=== PATIENT | male | born 2000 | race Caucasian/White ===

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

== ENCOUNTER 2020-10-04 11:16 | Emergency (ER) | payer OTHER ==
[~2020-10-04] VITALS: Ht 175.3 cm; Wt 68.0 kg
[~2020-10-04 11:16] MED LIST changes: +ASPI325EC PO; +Benztropine Me0.5 MG; +PALIPERIDONE ER3 MG PO; +QUETIAPINE FUM200 MG PO
[2020-10-04 11:56] LABS: Source, Urine Clean Catch
[2020-10-04 12:18] LABS: Appearance, Urine Clear (Clear); Bilirubin, Urine Neg (Neg); Blood, Urine Neg (Neg); Glucose Qualitative, Urine Neg (Neg); Ketones, Urine Neg (Neg); Leukocyte Esterase, Urine Neg (Neg); Nitrite, Urine Neg (Neg); Protein, Urine Neg (Neg); Urobilinogen, Urine NORM (Normal)
[2020-10-04 13:06] LABS: BASOPHILS ABSOLUTE AUTO 0.05 K/mm3 (0.00-0.23); BASOPHILS PERCENT AUTO 1 % (0-2); EOSINOPHILS ABSOLUTE AUTO 0.01 K/mm3 (0.00-0.68); EOSINOPHILS PERCENT AUTO 0 % (0-6); Hematocrit 43.6 % (37.0-53.0); Hemoglobin 15.3 g/dL (13.5-17.5); IMMATURE GRAN ABSOLUTE AUTO 0.02 K/mm3 (0.00-0.10); IMMATURE GRAN PERCENT AUTO 0 % (0-1); LYMPHOCYTES ABSOLUTE AUTO 0.86 K/mm3 (0.84-5.20); LYMPHOCYTES PERCENT AUTO 12 % (21-46); MONOCYTES ABSOLUTE AUTO 0.58 K/mm3 (0.16-1.47); MONOCYTES PERCENT AUTO 8 % (4-13); Mean Corpuscular HGB Conc 35.1 g/dL (31.5-36.5); Mean Corpuscular Volume 88 fL (80-100); NEUTROPHILS ABSOLUTE AUTO 5.97 K/mm3 (1.96-9.15); NEUTROPHILS PERCENT AUTO 80 % (41-73); Platelet Count 231 K/mm3 (150-400); RDW Coefficient Variation 12.5 % (11.7-14.2); RDW Standard Deviation 40.8 fL (35.1-46.3); Red Blood Cell Count 4.93 M/mm3 (4.30-5.90); White Blood Cell Count 7.49 K/mm3 (4.00-11.30)
[2020-10-04 13:06] LABS: Color, Urine Pale Yellow (P-Yellow)
[2020-10-04 13:15] LABS: U Amphetamine Screen Not Detected; U Barbituate Screen Not Detected; U Benzodiazapine Screen Not Detected; U Buprenorphine Screen Not Detected; U Cannabinoids Screen DETECTED; U Cocaine Screen Not Detected; U Methadone Screen Not Detected; U Methamphetamine Screen Not Detected; U Opiates Screen Not Detected; U Oxycodone Screen Not Detected; U Phencyclidine Screen Not Detected; U Propoxyphene Screen Not Detected
[2020-10-04 13:30] LABS: Alanine Aminotransfer (ALT/SGP 34 U/L (12-78); Albumin, Blood 4.2 g/dL (3.4-5.0); Alk Phos 110 U/L (58-237); Anion Gap 6 mmol/L (6-16); Aspartate Aminotrans (AST/SGOT 23 U/L (12-37); Bilirubin, Total 0.9 mg/dL (0.1-1.0); Blood Urea Nitrogen 4 mg/dL (8-21); Bun/Creatinine Ratio 4.7 (12.0-20.0); CO2, Blood 25 mmol/L (21-32); Calcium, Blood 9.4 mg/dL (8.5-10.1); Chloride, Blood 108 mmol/L (98-108); Creatinine, Blood 0.86 mg/dL (0.60-1.20); Ethanol (Alcohol), Blood, Med <3 mg/dL; Globulin, Blood 4.1 g/dL (2.2-4.0); Glomerular Filtration Rate >60 (60-); Glucose, Blood 136 mg/dL (70-99); Potassium, Blood 3.3 mmol/L (3.5-5.5); Salicylate 2.8 mg/dL (2.8-20.0); Sodium, Blood 139 mmol/L (136-145); Total Protein, Blood 8.3 g/dL (6.4-8.2)
[2020-10-04 13:38] LABS: Acetaminophen, Random <2.0 ug/mL (10.0-30.0)
== END 2020-10-04 14:00 | disposition home or self-care (01) ==
LOC: ER 11:16
PROVIDERS: Physician Assistant
DX: Z65.9 Problem related to unspecified psychosocial circumstances (principal); J45.909 Unspecified asthma, uncomplicated; F17.210 Nicotine dependence, cigarettes, uncomplicated; F12.90 Cannabis use, unspecified, uncomplicated; Z88.0 Allergy status to penicillin
CPT/HCPCS: 36415; 80053; 81003; 85025; 99284; G0480

== ENCOUNTER 2020-12-10 18:13 | Observation (INO) | payer OTHER ==
[~2020-12-10] VITALS: Ht 172.7 cm; Wt 63.5 kg
[2020-12-10] MEDS ORDERED: [UNRECOGNIZED DRUG - OTHER] IM (18:43)
[2020-12-10] MEDS ORDERED: LITH300C PO (18:43)
[2020-12-10 19:34] LABS: Source, Urine Clean Catch
[2020-12-10 19:40] LABS: Appearance, Urine Clear (Clear); Bilirubin, Urine Neg (Neg); Blood, Urine Neg (Neg); Color, Urine Yellow (P-Yellow); Glucose Qualitative, Urine Neg (Neg); Ketones, Urine 3+ (Neg); Leukocyte Esterase, Urine Neg (Neg); Nitrite, Urine Neg (Neg); Protein, Urine Neg (Neg); Urobilinogen, Urine NORM (Normal)
[2020-12-10 19:46] LABS: BASOPHILS ABSOLUTE AUTO 0.04 K/mm3 (0.00-0.23); BASOPHILS PERCENT AUTO 0 % (0-2); EOSINOPHILS ABSOLUTE AUTO 0.03 K/mm3 (0.00-0.68); EOSINOPHILS PERCENT AUTO 0 % (0-6); Hemoglobin 15.5 g/dL (13.5-17.5); IMMATURE GRAN ABSOLUTE AUTO 0.04 K/mm3 (0.00-0.10); IMMATURE GRAN PERCENT AUTO 0 % (0-1); LYMPHOCYTES ABSOLUTE AUTO 1.49 K/mm3 (0.84-5.20); LYMPHOCYTES PERCENT AUTO 13 % (21-46); MONOCYTES ABSOLUTE AUTO 0.46 K/mm3 (0.16-1.47); MONOCYTES PERCENT AUTO 4 % (4-13); Mean Corpuscular HGB 31.6 pg (26.0-34.0); Mean Corpuscular HGB Conc 34.4 g/dL (31.5-36.5); Mean Corpuscular Volume 92 fL (80-100); Mean Platelet Volume 11.6 fL (9.1-12.4); NEUTROPHILS ABSOLUTE AUTO 9.16 K/mm3 (1.96-9.15); NEUTROPHILS PERCENT AUTO 82 % (41-73); Platelet Count 264 K/mm3 (150-400); RDW Coefficient Variation 12.5 % (11.7-14.2); RDW Standard Deviation 42.7 fL (35.1-46.3); Red Blood Cell Count 4.91 M/mm3 (4.30-5.90); White Blood Cell Count 11.22 K/mm3 (4.00-11.30)
[2020-12-10 20:00] LABS: U Cannabinoids Screen DETECTED
[2020-12-10 20:01] LABS: U Amphetamine Screen Not Detected; U Barbituate Screen Not Detected; U Benzodiazapine Screen Not Detected; U Buprenorphine Screen Not Detected; U Cocaine Screen Not Detected; U Methadone Screen Not Detected; U Methamphetamine Screen Not Detected; U Opiates Screen Not Detected; U Oxycodone Screen Not Detected; U Phencyclidine Screen Not Detected; U Propoxyphene Screen Not Detected
[2020-12-10 20:10] LABS: Alanine Aminotransfer (ALT/SGP 30 U/L (12-78); Albumin, Blood 3.9 g/dL (3.4-5.0); Albumin/Globulin Ratio 0.9 (0.8-1.8); Alk Phos 115 U/L (50-136); Anion Gap 4 mmol/L (6-16); Aspartate Aminotrans (AST/SGOT 24 U/L (12-37); Bilirubin, Total 0.3 mg/dL (0.1-1.0); Blood Urea Nitrogen 10 mg/dL (8-24); Bun/Creatinine Ratio 10.7 (12.0-20.0); CO2, Blood 26 mmol/L (21-32); Calcium, Blood 9.4 mg/dL (8.5-10.1); Chloride, Blood 109 mmol/L (98-108); Creatinine, Blood 0.93 mg/dL (0.60-1.20); Ethanol (Alcohol), Blood, Med <3 mg/dL; Globulin, Blood 4.5 g/dL (2.2-4.0); Glomerular Filtration Rate >60 (60-); Glucose, Blood 96 mg/dL (70-99); Potassium, Blood 3.8 mmol/L (3.5-5.5); Sodium, Blood 139 mmol/L (136-145); Total Protein, Blood 8.4 g/dL (6.4-8.2)
[2020-12-10 20:11] LABS: Salicylate 4.1 mg/dL (2.8-20.0)
[2020-12-10 20:15] LABS: Acetaminophen, Random <2.0 ug/mL (10.0-30.0)
[2020-12-11 02:00] LABS: Influenza A, PCR NEGATIVE (NEGATIVE); Influenza B, PCR NEGATIVE (NEGATIVE); Resp Syncytial Virus, PCR NEGATIVE (NEGATIVE); SARS-Cov-2 (COVID-19) PCR, MMC NEGATIVE (NEGATIVE)
[2020-12-12] MEDS ORDERED: LITH300ER PO (10:45)
== END 2020-12-12 11:14 | disposition home or self-care (01) ==
LOC: ER 18:13 → EOR 18:14
PROVIDERS: Physician Assistant; ADMIT Emergency Medicine
DX: F25.9 Schizoaffective disorder, unspecified (principal); F17.210 Nicotine dependence, cigarettes, uncomplicated; Z91.14 Patient's other noncompliance with medication regimen; Z88.0 Allergy status to penicillin; Z79.899 Other long term (current) drug therapy; Z20.822 Contact with and (suspected) exposure to COVID-19
CPT/HCPCS: 0241U; 80053; 81003; 85025; 99285; A9270; G0378; G0480

== ENCOUNTER 2023-06-12 12:04 | Observation (INO) | payer OTHER ==
[~2023-06-12] VITALS: Ht 180.3 cm; Wt 65.8 kg
[~2023-06-12 12:04] MED LIST changes: +LITH300ER PO; +[UNRECOGNIZED DRUG - OTHER] IM
[2023-06-12] MEDS ORDERED: OLANZapine 10 MG Vial IM ONE (12:15)
[2023-06-12 12:41] LABS: BASOPHILS PERCENT AUTO 1 % (0-2); EOSINOPHILS ABSOLUTE AUTO 0.14 K/mm3 (0.00-0.68); EOSINOPHILS PERCENT AUTO 1 % (0-6); Hematocrit 48.2 % (37.0-53.0); Hemoglobin 17.3 g/dL (13.5-17.5); IMMATURE GRAN ABSOLUTE AUTO 0.05 K/mm3 (0.00-0.10); IMMATURE GRAN PERCENT AUTO 0 % (0-1); LYMPHOCYTES ABSOLUTE AUTO 2.03 K/mm3 (0.84-5.20); LYMPHOCYTES PERCENT AUTO 13 % (21-46); MONOCYTES ABSOLUTE AUTO 1.71 K/mm3 (0.16-1.47); MONOCYTES PERCENT AUTO 11 % (4-13); Mean Corpuscular HGB 31.6 pg (26.0-34.0); Mean Corpuscular HGB Conc 35.9 g/dL (31.5-36.5); Mean Corpuscular Volume 88 fL (80-100); Mean Platelet Volume 11.7 fL (9.1-12.4); NEUTROPHILS ABSOLUTE AUTO 11.46 K/mm3 (1.96-9.15); NEUTROPHILS PERCENT AUTO 74 % (41-73); Platelet Count 291 K/mm3 (150-400); RDW Coefficient Variation 12.8 % (11.7-14.2); RDW Standard Deviation 41.8 fL (35.1-46.3); Red Blood Cell Count 5.47 M/mm3 (4.30-5.90); White Blood Cell Count 15.49 K/mm3 (4.00-11.30)
[2023-06-12 13:03] LABS: Ethanol (Alcohol), Blood, Med <3 mg/dL; Salicylate 2.9 mg/dL (2.8-20.0)
[2023-06-12 13:10] LABS: Acetaminophen, Random <2.0 ug/mL (10.0-30.0); Alanine Aminotransfer (ALT/SGP 44 U/L (12-78); Albumin, Blood 4.5 g/dL (3.4-5.0); Alk Phos 117 U/L (50-136); Anion Gap 15 mmol/L (3-11); Aspartate Aminotrans (AST/SGOT 71 U/L (12-37); Bilirubin, Total 2.1 mg/dL (0.1-1.0); Blood Urea Nitrogen 16 mg/dL (8-24); Bun/Creatinine Ratio 14.4 (12.0-20.0); CO2, Blood 19 mmol/L (21-32); Calcium, Blood 9.8 mg/dL (8.5-10.1); Chloride, Blood 104 mmol/L (98-108); Creatinine, Blood 1.11 mg/dL (0.60-1.20); Globulin, Blood 4.5 g/dL (2.2-4.0); Glomerular Filtration Rate 96 (60-); Glucose, Blood 108 mg/dL (70-99); Potassium, Blood 3.6 mmol/L (3.5-5.5); Sodium, Blood 134 mmol/L (136-145)
[2023-06-12] MEDS ORDERED: Droperidol 5 mg/2 ml Vial IM ONE (13:35)
[2023-06-12 13:37] LABS: Lithium 0.82 mmol/L (0.60-1.20)
[2023-06-12 16:27] LABS: Source, Urine Voided
[2023-06-12 16:29] LABS: Appearance, Urine Clear (Clear); Blood, Urine Neg (Neg); Color, Urine Amber (P-Yellow); Glucose Qualitative, Urine Neg (Neg); Ketones, Urine 3+ (Neg); Leukocyte Esterase, Urine 1+ (Neg); Nitrite, Urine Neg (Neg); Protein, Urine 2+ (Neg); Specific Gravity, Urine 1.025 (1.003-1.022); Urobilinogen, Urine 1+ (Normal)
[2023-06-12 16:42] LABS: Bilirubin, Urine 1+ (Neg)
[2023-06-12 16:44] LABS: Bacteria Many /hpf; Mucus Heavy (0-Heavy); Squamous Epithelial Cells Rare /hpf (Few)
[2023-06-12 16:45] LABS: U Amphetamine Screen DETECTED; U Barbituate Screen Not Detected; U Benzodiazapine Screen Not Detected; U Buprenorphine Screen Not Detected; U Cannabinoids Screen DETECTED; U Cocaine Screen Not Detected; U Methadone Screen Not Detected; U Methamphetamine Screen DETECTED; U Opiates Screen Not Detected; U Oxycodone Screen Not Detected; U Phencyclidine Screen Not Detected
[2023-06-12] MEDS ORDERED: Divalproex Sodium 500 MG TABLET.DR PO ONE (18:00)
[2023-06-12] MEDS ORDERED: LORazepam 2 MG/ML 1ML Injection IM SCH (21:00)
[2023-06-12] MEDS ORDERED: TraZODone HCl 100 MG Tab PO SCH (21:00)
[2023-06-12] MEDS ORDERED: Lithium Carbonate 300 MG Cap PO SCH (21:00)
[2023-06-12] MEDS ORDERED: LORazepam 1 MG Tab PO SCH (21:00)
[2023-06-13 10:55] VITALS: BP 125/54
[2023-06-13] MEDS ORDERED: Divalproex Sodium 500 MG TABLET.DR PO ONE (12:45)
== END 2023-06-14 13:30 | disposition home or self-care (01) ==
LOC: ER 12:04 → EOR 12:05
PROVIDERS: ADMIT Emergency Medicine
DX: F25.0 Schizoaffective disorder, bipolar type (principal); F17.210 Nicotine dependence, cigarettes, uncomplicated; Z88.0 Allergy status to penicillin; Z86.73 Personal history of transient ischemic attack (TIA), and cerebral infarction without residual deficits
CPT/HCPCS: 80053; 80178; 81001; 85025; 86592; 87086; 96372; 99285-25; A9270; G0378; G0480; J1790

== ENCOUNTER 2023-12-26 14:59 | Observation (INO) | payer OTHER ==
[~2023-12-26] VITALS: Ht 180.3 cm; Wt 68.0 kg
[2023-12-26] MEDS ORDERED: Droperidol 5 mg/2 ml Vial IM ONE ×2 (15:10→19:10)
[2023-12-26] MEDS ORDERED: Midazolam HCL 1 MG/ML 5MLVIAL IM ONE ×2 (15:25→19:25)
[2023-12-26] MEDS ORDERED: DiphenhydrAMINE HCl 50 MG/ML 1ML Vial IM ONE (15:25)
[2023-12-26 16:05] LABS: Source, Urine Clean Catch
[2023-12-26 16:11] LABS: BASOPHILS ABSOLUTE AUTO 0.05 K/mm3 (0.00-0.23); BASOPHILS PERCENT AUTO 1 % (0-2); EOSINOPHILS ABSOLUTE AUTO 0.06 K/mm3 (0.00-0.68); EOSINOPHILS PERCENT AUTO 1 % (0-6); Hematocrit 38.4 % (37.0-53.0); Hemoglobin 13.6 g/dL (13.5-17.5); IMMATURE GRAN ABSOLUTE AUTO 0.02 K/mm3 (0.00-0.10); IMMATURE GRAN PERCENT AUTO 0 % (0-1); LYMPHOCYTES ABSOLUTE AUTO 0.97 K/mm3 (0.84-5.20); LYMPHOCYTES PERCENT AUTO 10 % (21-46); MONOCYTES ABSOLUTE AUTO 1.34 K/mm3 (0.16-1.47); MONOCYTES PERCENT AUTO 14 % (4-13); Mean Corpuscular HGB Conc 35.4 g/dL (31.5-36.5); Mean Corpuscular Volume 90 fL (80-100); Mean Platelet Volume 11.6 fL (9.1-12.4); NEUTROPHILS ABSOLUTE AUTO 7.21 K/mm3 (1.96-9.15); NEUTROPHILS PERCENT AUTO 75 % (41-73); Platelet Count 190 K/mm3 (150-400); RDW Coefficient Variation 12.2 % (11.7-14.2); RDW Standard Deviation 40.6 fL (35.1-46.3); Red Blood Cell Count 4.25 M/mm3 (4.30-5.90); White Blood Cell Count 9.65 K/mm3 (4.00-11.30)
[2023-12-26 16:15] LABS: Appearance, Urine Hazy (Clear); Blood, Urine Neg (Neg); Color, Urine Amber (P-Yellow); Glucose Qualitative, Urine Neg (Neg); Ketones, Urine 1+ (Neg); Leukocyte Esterase, Urine 1+ (Neg); Nitrite, Urine Pos (Neg); Protein, Urine 2+ (Neg); Specific Gravity, Urine 1.025 (1.003-1.022); Urobilinogen, Urine 2+ (Normal)
[2023-12-26 16:27] LABS: U Amphetamine Screen Not Detected; U Barbituate Screen Not Detected; U Benzodiazapine Screen Not Detected; U Buprenorphine Screen Not Detected; U Cannabinoids Screen DETECTED; U Cocaine Screen Not Detected; U Methadone Screen Not Detected; U Methamphetamine Screen Not Detected; U Opiates Screen Not Detected; U Oxycodone Screen Not Detected; U Phencyclidine Screen Not Detected
[2023-12-26 16:30] LABS: Ethanol (Alcohol), Blood, Med <3 mg/dL; Salicylate 3.2 mg/dL (2.8-20.0)
[2023-12-26 16:30] LABS: Bilirubin, Urine 1+ (Neg)
[2023-12-26 16:32] LABS: Mucus Mod (0-Heavy)
[2023-12-26 16:33] LABS: Red Blood Cells, Urine 0-2 /hpf (0-2)
[2023-12-26 16:34] LABS: Bacteria Many /hpf; Squamous Epithelial Cells Not Seen /hpf (Few)
[2023-12-26 16:46] LABS: Acetaminophen, Random <2.0 ug/mL (10.0-30.0); Alanine Aminotransfer (ALT/SGP 47 U/L (12-78); Albumin, Blood 3.3 g/dL (3.4-5.0); Albumin/Globulin Ratio 0.8 (0.8-1.8); Alk Phos 87 U/L (50-136); Anion Gap 10 mmol/L (3-11); Aspartate Aminotrans (AST/SGOT 57 U/L (12-37); Bilirubin, Total 0.8 mg/dL (0.1-1.0); Blood Urea Nitrogen 9 mg/dL (8-24); Bun/Creatinine Ratio 7.6 (12.0-20.0); CO2, Blood 25 mmol/L (21-32); Calcium, Blood 8.7 mg/dL (8.5-10.1); Chloride, Blood 103 mmol/L (98-108); Creatinine, Blood 1.18 mg/dL (0.60-1.20); Globulin, Blood 3.9 g/dL (2.2-4.0); Glomerular Filtration Rate 89 (60-); Glucose, Blood 119 mg/dL (70-99); Potassium, Blood 2.9 mmol/L (3.5-5.5); Sodium, Blood 135 mmol/L (136-145); Total Protein, Blood 7.2 g/dL (6.4-8.2)
[2023-12-26 16:52] LABS: Lithium 0.91 mmol/L (0.60-1.20)
[2023-12-26] MEDS ORDERED: Cephalexin Monohydrate 500 MG Cap PO ONE (17:15)
[2023-12-26] MEDS ORDERED: Potassium Chloride 20 MEQ/15 ML UDC PO ONE (17:15)
[2023-12-26] MEDS ORDERED: RisperiDONE 1 MG Tab PO ONE (17:15)
[2023-12-27] MEDS ORDERED: OLANZapine 10 MG Vial IM ONE (04:05)
[2023-12-27] MEDS ORDERED: Cephalexin Monohydrate 500 MG Cap PO SCH (09:00)
[2023-12-27] MEDS ORDERED: DiphenhydrAMINE HCl 50 MG Cap PO ONE (09:45)
[2023-12-27] MEDS ORDERED: LORazepam 1 MG Tab PO ONE (09:45)
[2023-12-27] MEDS ORDERED: RisperiDONE 1 MG Tab PO ONE (09:45)
[2023-12-27 11:59] LABS: U Amphetamine Screen Not Detected; U Barbituate Screen Not Detected; U Benzodiazapine Screen DETECTED; U Buprenorphine Screen Not Detected; U Cannabinoids Screen DETECTED; U Cocaine Screen Not Detected; U Methadone Screen Not Detected; U Methamphetamine Screen Not Detected; U Opiates Screen Not Detected; U Oxycodone Screen Not Detected; U Phencyclidine Screen Not Detected
[2023-12-27] MEDS ORDERED: Nicotine 14 MG PATCH TOP ONE (19:50)
[2023-12-27] MEDS ORDERED: Melatonin 5 MG Tablet PO SCH (21:00)
[2023-12-27] MEDS ORDERED: Lithium Carbonate 300 MG Cap PO SCH (21:00)
[2023-12-28] MEDS ORDERED: LORazepam 1 MG Tab PO ONE ×3 (06:20→20:50)
[2023-12-28] MEDS ORDERED: DiphenhydrAMINE HCl 50 MG/ML 1ML Vial IM ONE (06:20)
[2023-12-28] MEDS ORDERED: DiphenhydrAMINE HCl 50 MG Cap PO ONE ×2 (06:25→20:50)
[2023-12-28] MEDS ORDERED: PALIPERIDONE IM SCH (15:45)
[2023-12-28] MEDS ORDERED: Nicotine 21 MG PATCH TOP ONE (17:45)
[2023-12-28] MEDS ORDERED: OLANZapine ODT 5 MG Tab MM ONE (17:55)
[2023-12-28] MEDS ORDERED: Divalproex Sodium 500 MG TABLET.DR PO ONE (20:50)
[2023-12-28] MEDS ORDERED: Haloperidol 5 MG Tab PO ONE (20:50)
[2023-12-29 08:42] VITALS: BP 108/72
[2023-12-29] MEDS ORDERED: HyDROXyzine HCl 25 MG Tab PO PRN (13:40)
[2024-01-04] MEDS ORDERED: RISP1 PO (18:19)
== END 2023-12-29 14:20 | disposition other institution (70) ==
LOC: ER 14:59 → EOR 15:00
PROVIDERS: Psychiatry & Neurology Psychiatry; ADMIT Student in an Organized Health Care Education/Training Program
DX: F25.0 Schizoaffective disorder, bipolar type (principal); N30.90 Cystitis, unspecified without hematuria; E87.6 Hypokalemia; E88.09 Other disorders of plasma-protein metabolism, not elsewhere classified; F17.210 Nicotine dependence, cigarettes, uncomplicated; Z91.148 Patient's other noncompliance with medication regimen for other reason; Z88.0 Allergy status to penicillin; Z79.899 Other long term (current) drug therapy
CPT/HCPCS: 80053; 80178; 80320; 81001; 85025; 87086; 93005; 93010; 96372; 99285-25; A9270; G0378; G0480; J1200; J1790; J2250